=== PATIENT | male | born 1980 | race Caucasian/White ===

== ENCOUNTER 2016-12-30 13:38 | Emergency (ER) | payer SELFPAY ==
[~2016-12-30] VITALS: Ht 177.8 cm; Wt 73.0 kg
[2016-12-30 13:43] VITALS: BP 119/76
== END 2016-12-30 19:19 | disposition left against medical advice (07) ==
LOC: ER 13:38
DX: M54.2 Cervicalgia (principal); M54.9 Dorsalgia, unspecified; Z53.21 Procedure and treatment not carried out due to patient leaving prior to being seen by health care provider